=== PATIENT | female | born 1930 ===

== ENCOUNTER 2018-08-30 05:40 | Day surgery (SDC) | payer OTHER ==
[~2018-08-30 05:40] MED LIST: ATROVASTATIN PO; COZAAR50 MG PO; DIALTIAZEM PO; OMEPRAZOLE20 MG PO; SYNTHROID50 MCG PO
== END 2018-08-30 12:00 | disposition home or self-care (01) ==
LOC: CIR.AMB 05:40
DX: C21.1 Malignant neoplasm of anal canal (principal)